=== PATIENT | male | born 1980 | race Caucasian/White ===

== ENCOUNTER 2016-05-09 10:28 | Emergency (ER) | payer SELFPAY ==
[2016-05-09] MEDS ORDERED: CEFTRIAXONE 250 MG VIAL ONE (11:28)
[2016-05-09] MEDS ORDERED: AZITHROMYCIN 250 MG TAB ONE (11:28)
[2016-05-09] MEDS ORDERED: ONDANSETRON ODT 4 MG TAB ONE (11:28)
[2016-05-09] MEDS ORDERED: LIDOCAINE 1% MDV 20 ML ONE (11:34)
== END 2016-05-09 11:55 | disposition home or self-care (01) ==
LOC: ER 10:28
CPT/HCPCS: 81001; 87088; 87491; 87591; 96372

== ENCOUNTER 2016-06-05 14:05 | Emergency (ER) | payer SELFPAY ==
[2016-06-05] MEDS ORDERED: AZITHROMYCIN 250 MG TAB ONE (15:31)
[2016-06-05] MEDS ORDERED: CEFTRIAXONE 250 MG VIAL ONE (15:32)
== END 2016-06-05 16:07 | disposition home or self-care (01) ==
LOC: FASTR 14:05
DX: N34.2 Other urethritis (principal); F17.210 Nicotine dependence, cigarettes, uncomplicated; F15.10 Other stimulant abuse, uncomplicated; F12.10 Cannabis abuse, uncomplicated
CPT/HCPCS: 81003; 87491; 87591; 96372